=== PATIENT | female | born 1975 | race Caucasian/White ===

== ENCOUNTER → 2017-07-13 | Outpatient (CLI) | payer OTHER | LOC: FIMAGING 12:35 | PROVIDERS: ATTEND Obstetrics & Gynecology | DX: Z12.31 Encounter for screening mammogram for malignant neoplasm of breast (principal) | CPT/HCPCS: G0202 ==

== ENCOUNTER 2018-04-18 18:00 | Emergency (ER) | payer SELFPAY ==
--- NOTE | 2018-04-18 18:50 | EDPHY ---
H & P Stated Complaint: visual psychedelic lines both eyes/then manuel continue to have l eye blurrynes Time Seen by Provider: 04/18/18 18:20 HPI/ROS: CHIEF COMPLAINT: Visual changes, headache HISTORY OF PRESENT ILLNESS: 42-year-old female presents with visual changes and headache. Onset of squiggly lines in her peripheral vision at 4:10 p.m.. The visual change affected both eyes. Followed by a mild posterior headache. The headache has been waxing and waning, and mild to moderate. No other associated symptoms. No alleviating or aggravating factors. No prior similar symptoms. REVIEW OF SYSTEMS: complete 10 point ROS reviewed and is negative except at noted in the HPI - Personal History LMP (Females 10-55): 8-14 Days Ago Current Tetanus Diphtheria and Acellular Pertussis (TDAP): Yes - Medical/Surgical History Hx Asthma: No Hx Chronic Respiratory Disease: No Hx Diabetes: No Hx Cardiac Disease: No Hx Renal Disease: No Hx Cirrhosis: No Hx Alcoholism: No Hx HIV/AIDS: No Hx Splenectomy or Spleen Trauma: No Other PMH: denies - Social History Smoking Status: Never smoked Alcohol Use: Sober Drug Use: None Additional Social History: - Physical Exam Exam: General Appearance: Alert, pleasant Eyes: Pupils equal and round, no conjunctival pallor or injection ENT, Mouth: Mucous membranes moist Neck: Normal inspection Respiratory: Lungs are clear to auscultation Cardiovascular: Regular rate and rhythm, no murmur Gastrointestinal: Abdomen is soft and nontender Neurological: Alert, cranial nerves II through XII intact, motor 5/5, sensory intact to light touch, normal gait Skin: Warm and dry Extremities: Normal inspection Psychiatric: Mood and affect normal Constitutional: Initial Vital Signs Temperature (C) 36.6 C 04/18/18 18:05 Heart Rate 72 04/18/18 18:05 Respiratory Rate 17 04/18/18 18:05 Blood Pressure 125/86 H 04/18/18 18:05 O2 Sat (%) 98 04/18/18 18:05 O2 Delivery Mode Room Air Allergies/Adverse Reactions: minocycline Allergy (Verified 04/18/18 18:04) Home Medications: Medication Instructions Recorded Valtrex 04/18/18 Medical Decision Making - Diagnostics Imaging Results: MRI brain: unremarkable Imaging: Discussed imaging studies w/ call center assistant Radiologist ED Course/Re-evaluation: This patient presents with visual scotomata and headache, most likely migraine headache. No prior history of migraine headaches or similar symptoms. Given new onset of symptoms, MRI of the brain ordered. MRI results discussed with the patient. She is asymptomatic. Neurologic exam is normal. Will follow up with Urology. Differential Diagnosis: Headache including but not limited to subarachnoid hemorrhage, migraine headache , tension headache and infectious causes such as meningitis, pharyngitis and sinusitis. - Data Points Medications Given: Discontinued Medications Ibuprofen (Motrin) 600 mg PO EDNOW ONE Stop: 04/18/18 18:52 Last Admin: 04/18/18 20:00 Dose: 600 mg Departure - Departure Disposition: Home, Routine, Self-Care Clinical Impression: Ocular migraine Condition: Good Instructions: Ocular Migraine (ED) Referrals: Negin Mclean MD [Primary Care Provider] - As per Instructions (Call to make a follow-up appointment.)
[2018-04-18] MEDS ORDERED: IBUPROFEN 600 MG TAB PO ONE (18:51)
[2018-04-18 22:36] VITALS: BP 116/73
== END 2018-04-18 22:28 | disposition home or self-care (01) ==
DX: G43.909 Migraine, unspecified, not intractable, without status migrainosus (principal)